=== PATIENT | female | born 1995 | race Two or more races ===

== ENCOUNTER 2024-07-16 01:08 | Inpatient (IN) | payer OTHER ==
[2024-07-16] VITALS (18 sets, daily range): BP systolic 90–101; BP diastolic 51–62; PULSE 73–94; RESP 14–22; TEMP 97.5–99; O2SAT 99–100
[~2024-07-16] VITALS: Ht 152.4 cm; Wt 60.2 kg
[2024-07-16] MEDS: LOPERAMIDE HCL 2 MG CAP/TAB PO ONE (01:55)
[2024-07-16 01:58] LABS: Basophils # (auto) 0.1 10 ^3/uL (0-0.2); Lymphocytes # (auto) 2.2 10 ^3/uL (0.4-5.4); Monocytes # (auto) 0.7 10 ^3/uL (0-1.3)
[2024-07-16 01:59] LABS: Basophils % (auto) 1.1 % (0.0-2.0); Eosinophils # (auto) 0.1 10 ^3/uL (0-0.8); Eosinophils % (auto) 1.2 % (0.0-7.0); Hematocrit 18.4 % (36.0-46.0); Lymphocytes % (auto) 22.2 % (10.0-50.0); Mean Corpuscular Hemoglobin 12.8 pg (28.0-32.0); Mean Corpuscular Hgb Conc. 24.9 g/dL (32.0-36.0); Mean Corpuscular Volume 51.3 fL (80.0-100.0); Monocytes % (auto) 7.2 % (0.0-12.0); Neutrophils # (auto) 6.8 10 ^3/uL (1.6-8.6); Neutrophils % (auto) 68.3 % (37.0-80.0); Nucleated Red Blood Cells % 0.4 %; Platelet Count (auto) 202 10^3/uL (140-450); Red Blood Cells 3.58 10^6/uL (4.0-5.20); White Blood Cell 9.9 10^3/uL (4.4-10.8)
[2024-07-16 02:05] LABS: Hemoglobin 4.6 g/dL (12.2-16.2)
[2024-07-16 02:06] LABS: Red Cell Distribution Width 23.1 % (11.8-14.3)
[2024-07-16 02:09] LABS: Albumin 4.1 g/dL (3.2-4.8); Alkaline Phosphatase 63 U/L (46-116); Anion Gap 7 (5-15); Aspartate Aminotransferase 11 U/L (13-40); BUN/Creatinine Ratio 7.7 (10.0-20.0); Bilirubin, Total 1.1 mg/dL (0.2-1.0); Blood Urea Nitrogen 7 mg/dL (9-23); Calcium 9.2 mg/dL (8.7-10.4); Carbon Dioxide 23 mmol/L (20-30); Chloride 103 mmol/L (98-107); Glucose 99 mg/dL (74-106); Lipase 82 U/L (12-53); Potassium 3.9 mmol/L (3.5-5.1); Sodium 133 mmol/L (136-145); Total Protein 7.4 g/dL (5.7-8.2)
[2024-07-16 02:21] LABS: Alanine Aminotransferase < 9 U/L (7-40)
[2024-07-16 03:03] LABS: Anisocytosis Slight; Hypochromia Marked
[2024-07-16 03:05] LABS: Large Platelets FEW; Ovalocytes FEW; Platelet Estimate Adequa; Stomatocytes Few; Tear Drop Cells FEW
[2024-07-16] MEDS: SODIUM CHLORIDE 0.9% 1,000 ML IV ONE (03:10)
[2024-07-16 03:21] LABS: Urine Bacteria None Seen /hpf (None Seen)
[2024-07-16 03:31] LABS: Eosinophils # (auto) 0.1 10 ^3/uL (0-0.8); Eosinophils % (auto) 1.3 % (0.0-7.0); White Blood Cell 8.2 10^3/uL (4.4-10.8)
[2024-07-16 03:33] LABS: Basophils # (auto) 0 10 ^3/uL (0-0.2); Basophils % (auto) 0.6 % (0.0-2.0); Hematocrit 16.9 % (36.0-46.0); Lymphocytes # (auto) 1.7 10 ^3/uL (0.4-5.4); Lymphocytes % (auto) 20.3 % (10.0-50.0); Mean Corpuscular Hemoglobin 12.5 pg (28.0-32.0); Mean Corpuscular Hgb Conc. 23.8 g/dL (32.0-36.0); Mean Corpuscular Volume 52.5 fL (80.0-100.0); Monocytes # (auto) 0.6 10 ^3/uL (0-1.3); Monocytes % (auto) 7.1 % (0.0-12.0); Neutrophils # (auto) 5.8 10 ^3/uL (1.6-8.6); Neutrophils % (auto) 70.7 % (37.0-80.0); Platelet Count (auto) 162 10^3/uL (140-450); Red Blood Cells 3.21 10^6/uL (4.0-5.20)
[2024-07-16 03:43] LABS: Urine Blood Negative /uL (Negative); Urine Clarity Clear (Clear); Urine Color Light-Yellow (Yellow); Urine Protein, UAD Negative (Negative); Urine Specific Gravity 1.004 (1.001-1.035); Urine Urobilinogen Normal (Negative); Urine WBC 1 /hpf (0 - 5)
[2024-07-16] MEDS ORDERED: DOCUSATE SOD 100 MG CAP PO PRN (09:30)
[2024-07-16] MEDS ORDERED: PANTOPRAZOLE 40 MG/10 ML VIAL INJ IV ONE (09:30)
[2024-07-16] MEDS: PANTOPRAZOLE 40 MG/10 ML VIAL INJ IV SCH (09:46)
[2024-07-16] MEDS: SODIUM CHLORIDE 0.9% 1,000 ML IV SCH (09:46)
[2024-07-16 10:58] LABS: % Iron Saturation 6.7 % (15-50)
[2024-07-16 11:22] LABS: Folate (Folic Acid) 14.41 ng/mL (>5.38)
[2024-07-16] MEDS ORDERED: NITROGLYCERIN 0.4 MG SL TAB SL PRN (11:30)
[2024-07-16 13:27] LABS: Hemoglobin 6.8 g/dL (12.2-16.2)
[2024-07-17] VITALS (9 sets, daily range): BP systolic 106–130; BP diastolic 63–78; PULSE 47–72; RESP 16–18; TEMP 97.5–98.6; O2SAT 96–100
[2024-07-17 06:39] LABS: Basophils # (auto) 0.1 10 ^3/uL (0-0.2); Basophils % (auto) 0.6 % (0.0-2.0); Eosinophils # (auto) 0.1 10 ^3/uL (0-0.8); Eosinophils % (auto) 0.7 % (0.0-7.0); Hematocrit 32.1 % (36.0-46.0); Lymphocytes # (auto) 1.9 10 ^3/uL (0.4-5.4); Lymphocytes % (auto) 16.9 % (10.0-50.0); Mean Corpuscular Hemoglobin 21.2 pg (28.0-32.0); Mean Corpuscular Hgb Conc. 31.1 g/dL (32.0-36.0); Mean Corpuscular Volume 68.1 fL (80.0-100.0); Monocytes # (auto) 0.6 10 ^3/uL (0-1.3); Monocytes % (auto) 5.6 % (0.0-12.0); Neutrophils # (auto) 8.4 10 ^3/uL (1.6-8.6); Neutrophils % (auto) 76.2 % (37.0-80.0); Nucleated Red Blood Cells % 0.6 %; Platelet Count (auto) 137 10^3/uL (140-450); Red Blood Cells 4.71 10^6/uL (4.0-5.20); Red Cell Distribution Width 38.2 % (11.8-14.3)
[2024-07-17 06:56] LABS: Alanine Aminotransferase 10 U/L (7-40); Albumin 3.7 g/dL (3.2-4.8); Alkaline Phosphatase 61 U/L (46-116); Anion Gap 5 (5-15); Aspartate Aminotransferase 13 U/L (13-40); BUN/Creatinine Ratio 9.5 (10.0-20.0); Bilirubin, Total 1.1 mg/dL (0.2-1.0); Blood Urea Nitrogen 6 mg/dL (9-23); Calcium 8.9 mg/dL (8.7-10.4); Carbon Dioxide 23 mmol/L (20-30); Chloride 110 mmol/L (98-107); Glucose 94 mg/dL (74-106); Lipase 195 U/L (12-53); Potassium 4.4 mmol/L (3.5-5.1); Sodium 138 mmol/L (136-145); Total Protein 6.8 g/dL (5.7-8.2)
[2024-07-17] MEDS: ONDANSETRON HCL 4 MG/2 ML VIAL IV PRN (09:32)
[2024-07-17] MEDS: D5W/SOD CHL 0.45% 1,000 ML IV SCH (16:00)
[2024-07-17] MEDS: MORPHINE SULFATE INJ 2 MG/ml SYRG IV PRN (16:18)
[2024-07-17] MEDS ORDERED: MORPHINE SULFATE INJ 2 MG/ml SYRG IV PRN (17:15)
[2024-07-17 18:03] LABS: Partial Thromboplastin Time 24.2 SEC (24.5-34.5); Prothrombin Time 10.6 sec (9.3-11.8)
[2024-07-17] MEDS: IRON SUCROSE COMPLEX 100 ML IV SCH (18:10)
[2024-07-17 19:42] LABS: Rapid Influenza A Negative (Negative)
[2024-07-17 19:43] LABS: Rapid Influenza B Negative (Negative)
[2024-07-17 20:01] LABS: COVID19 ANTIGEN SOFIA FIA NEGATIVE (NEGATIVE)
[2024-07-17] MEDS: metroNIDAZOLE 500MG/100ML 100 ML IV SCH (21:21)
[2024-07-17] MEDS: CIPROFLOXACIN 400MG/200ML 200 ML IV SCH (22:37)
[2024-07-18] VITALS (7 sets, daily range): BP systolic 111–128; BP diastolic 57–74; PULSE 50–65; RESP 16–18; TEMP 97.8–98.6; O2SAT 93–100
[2024-07-18 06:21] LABS: Chloride 108 mmol/L (98-107); Potassium 4.3 mmol/L (3.5-5.1); Sodium 138 mmol/L (136-145)
[2024-07-18 06:22] LABS: Anion Gap 7 (5-15); Carbon Dioxide 23 mmol/L (20-30)
[2024-07-18 06:23] LABS: Basophils # (auto) 0.1 10 ^3/uL (0-0.2); Calcium 8.6 mg/dL (8.7-10.4); Eosinophils # (auto) 0.1 10 ^3/uL (0-0.8); Hemoglobin 9.4 g/dL (12.2-16.2); Lymphocytes # (auto) 1.4 10 ^3/uL (0.4-5.4); Monocytes # (auto) 0.5 10 ^3/uL (0-1.3); Nucleated Red Blood Cells % 0.2 %; Platelet Count (auto) 123 10^3/uL (140-450)
[2024-07-18 06:27] LABS: Glucose 100 mg/dL (74-106)
[2024-07-18 06:28] LABS: BUN/Creatinine Ratio 11.3 (10.0-20.0); Basophils % (auto) 1.8 % (0.0-2.0); Blood Urea Nitrogen 6 mg/dL (9-23); Eosinophils % (auto) 0.7 % (0.0-7.0); Hematocrit 30.1 % (36.0-46.0); Lymphocytes % (auto) 20.3 % (10.0-50.0); Mean Corpuscular Hemoglobin 21.7 pg (28.0-32.0); Mean Corpuscular Hgb Conc. 31.2 g/dL (32.0-36.0); Mean Corpuscular Volume 69.4 fL (80.0-100.0); Monocytes % (auto) 7.5 % (0.0-12.0); Neutrophils % (auto) 69.7 % (37.0-80.0); Red Blood Cells 4.34 10^6/uL (4.0-5.20); White Blood Cell 7.1 10^3/uL (4.4-10.8)
[2024-07-18 06:57] LABS: Red Cell Distribution Width 39.1 % (11.8-14.3)
[2024-07-18 08:40] LABS: Anisocytosis Marked; Hypochromia Moderate; Ovalocytes FEW; Platelet Estimate Decreased
[2024-07-18 08:41] LABS: Tear Drop Cells FEW
[2024-07-18] MEDS ORDERED: IRON SUCROSE COMPLEX 100 ML IV SCH (12:00)
[2024-07-18] MEDS: LACTULOSE 20Gm/30ML SOLN PO STA (17:43)
[2024-07-19] VITALS (7 sets, daily range): BP systolic 97–117; BP diastolic 62–69; PULSE 53–69; RESP 14–18; TEMP 97.6–98.6; O2SAT 95–100
[2024-07-19 07:56] LABS: Anion Gap 3 (5-15); Calcium 9.3 mg/dL (8.7-10.4); Carbon Dioxide 26 mmol/L (20-30); Chloride 110 mmol/L (98-107); Potassium 3.5 mmol/L (3.5-5.1); Sodium 139 mmol/L (136-145)
[2024-07-19 08:00] LABS: Basophils # (auto) 0.1 10 ^3/uL (0-0.2); Basophils % (auto) 0.9 % (0.0-2.0); Eosinophils # (auto) 0.1 10 ^3/uL (0-0.8); Eosinophils % (auto) 0.9 % (0.0-7.0); Hematocrit 31.1 % (36.0-46.0); Hemoglobin 9.8 g/dL (12.2-16.2); Lymphocytes # (auto) 1.4 10 ^3/uL (0.4-5.4); Lymphocytes % (auto) 22.1 % (10.0-50.0); Mean Corpuscular Hemoglobin 21.5 pg (28.0-32.0); Mean Corpuscular Hgb Conc. 31.4 g/dL (32.0-36.0); Mean Corpuscular Volume 68.4 fL (80.0-100.0); Monocytes # (auto) 0.4 10 ^3/uL (0-1.3); Monocytes % (auto) 6.3 % (0.0-12.0); Neutrophils # (auto) 4.3 10 ^3/uL (1.6-8.6); Neutrophils % (auto) 69.8 % (37.0-80.0); Nucleated Red Blood Cells % 0.1 %; Platelet Count (auto) 147 10^3/uL (140-450); Red Blood Cells 4.54 10^6/uL (4.0-5.20); White Blood Cell 6.2 10^3/uL (4.4-10.8)
[2024-07-19 08:01] LABS: Red Cell Distribution Width 39.2 % (11.8-14.3)
[2024-07-19 08:02] LABS: Glucose 88 mg/dL (74-106)
[2024-07-19 08:03] LABS: BUN/Creatinine Ratio 8.6 (10.0-20.0); Blood Urea Nitrogen < 5 mg/dL (9-23)
[2024-07-19] MEDS ORDERED: SODIUM CHLORIDE LOCK 10 ML ONE (08:33)
[2024-07-19] MEDS: LIDOCAINE VISCOUS 2% 15ML UD ONE (09:22)
[2024-07-19] MEDS: diphenhdrAMINE HCL 50 MG/1 ML VL ONE (09:22)
[2024-07-19] MEDS: fentaNYL CITRATE 100 MCG/2 ML VL ONE (09:22)
[2024-07-19] MEDS: MIDAZOLAM HCL 5 MG/ML-1ML VIAL ONE (09:22)
[2024-07-19 09:31] LABS: Lipase 244 U/L (12-53)
[2024-07-19 10:55] LABS: Hepatitis B Surface Antigen Negative (Negative)
[2024-07-19 11:14] LABS: Hepatitis B Core Total AB Negative (Negative)
[2024-07-19 11:16] LABS: Hepatitis A Ab IgM Negative
[2024-07-19 11:17] LABS: Hepatitis B Core IgM Negative; Hepatitis C Antibody Negative (Negative)
[2024-07-19 12:17] LABS: Hepatitis A Total Antibody Positive (Negative); Hepatitis B Surface Antibody Positive (Negative); Hepatitis B Surface Antigen Negative (Negative); Hepatitis C Antibody Negative (Negative)
[2024-07-20 01:00] VITALS: BP 110/67; PULSE 72; RESP 14; TEMP 98; O2SAT 99
[2024-07-20 05:01] VITALS: BP 99/63; PULSE 75; RESP 14; TEMP 98; O2SAT 96
[2024-07-20 07:24] LABS: Eosinophils # (auto) 0.1 10 ^3/uL (0-0.8); Neutrophils # (auto) 3.6 10 ^3/uL (1.6-8.6); Red Blood Cells 4.72 10^6/uL (4.0-5.20); White Blood Cell 5.5 10^3/uL (4.4-10.8)
[2024-07-20 07:27] LABS: Basophils # (auto) 0 10 ^3/uL (0-0.2); Basophils % (auto) 0.8 % (0.0-2.0); Eosinophils % (auto) 0.9 % (0.0-7.0); Hematocrit 32.9 % (36.0-46.0); Hemoglobin 10.2 g/dL (12.2-16.2); Lymphocytes # (auto) 1.5 10 ^3/uL (0.4-5.4); Lymphocytes % (auto) 27.8 % (10.0-50.0); Mean Corpuscular Hemoglobin 21.7 pg (28.0-32.0); Mean Corpuscular Hgb Conc. 31.1 g/dL (32.0-36.0); Mean Corpuscular Volume 69.6 fL (80.0-100.0); Monocytes # (auto) 0.3 10 ^3/uL (0-1.3); Monocytes % (auto) 5.9 % (0.0-12.0); Neutrophils % (auto) 64.6 % (37.0-80.0); Nucleated Red Blood Cells % 0.1 %; Platelet Count (auto) 152 10^3/uL (140-450)
[2024-07-20 07:36] LABS: Red Cell Distribution Width 39.6 % (11.8-14.3)
[2024-07-20 08:50] LABS: Platelet Estimate Adequate
[2024-07-20 08:51] VITALS: BP 108/67; PULSE 62; RESP 20; TEMP 97.8; O2SAT 100
[2024-07-20 08:51] LABS: Anisocytosis Marked; Hypochromia Moderate
[2024-07-20] MEDS ORDERED: FERR-7 PO (11:33)
[2024-07-20] MEDS ORDERED: DOCU-94 PO (11:33)
== END 2024-07-20 11:15 | disposition home or self-care (01) | DRG 392 ==
LOC: ER 01:08 → OVERFLOW 11:28 → CENTRAL 14:25 → WEST WING 07-18 17:00
PROVIDERS: ADMIT Internal Medicine; ATTEND Internal Medicine
PROC: 30233N1 Transfusion of Nonautologous Red Blood Cells into Peripheral Vein, Percutaneous Approach (ICD-10-PCS; principal; 2024-07-16)
PROC: 0DB98ZX Excision of Duodenum, Via Natural or Artificial Opening Endoscopic, Diagnostic (ICD-10-PCS; 2024-07-19)
PROC: 0DB68ZX Excision of Stomach, Via Natural or Artificial Opening Endoscopic, Diagnostic (ICD-10-PCS; 2024-07-19)
DX: A09 Infectious gastroenteritis and colitis, unspecified (principal); D62 Acute posthemorrhagic anemia; J90 Pleural effusion, not elsewhere classified; K29.70 Gastritis, unspecified, without bleeding; N92.0 Excessive and frequent menstruation with regular cycle; Z20.822 Contact with and (suspected) exposure to COVID-19; D50.8 Other iron deficiency anemias; Z82.49 Family history of ischemic heart disease and other diseases of the circulatory system
CPT/HCPCS: 36415; 43239; 71045; 74176; 74181; 76705; 76856; 78226; 80048; 80053; 80074; 80307; 81001; 81025; 82270; 82607; 82728; 82746; 83540; 83550; 83615; 83690; 84702; 85014; 85018; 85025; 85045; 85048; 85246; 85610; 85730; 86703; 86704; 86706; 86708; 86803; 86850; 86900; 86901; 86920; 87045; 87340; 87426; 87427; 87493; 87804; G0378; J1756; J2250; J2405; J2470; J3490